=== PATIENT | male | born 1995 | race Caucasian/White ===

== ENCOUNTER 2019-11-05 12:34 | Emergency (ER) | payer BC ==
[~2019-11-05] VITALS: Ht 198.1 cm; Wt 127.0 kg
[2019-11-05 12:35] VITALS: BP 118/79
== END 2019-11-05 13:26 | disposition home or self-care (01) ==
LOC: ER 12:34
DX: K92.0 Hematemesis (principal); F17.210 Nicotine dependence, cigarettes, uncomplicated; Z72.89 Other problems related to lifestyle